=== PATIENT | female | born 1955 | race Caucasian/White ===

== ENCOUNTER 2017-02-22 17:29 | Emergency (ER) | payer MEDICAID ==
[2017-02-22] MEDS ORDERED: Labetalol 20 MG/4 ML Syringe IVPUSH ONE ×2 (18:31→19:26)
[2017-02-22] MEDS ORDERED: Ondansetron 4 MG/2 ML SDV IVPUSH ONE (18:42)
[2017-02-22] MEDS ORDERED: Sodium Chloride 0.9% 1,000 ML IV SCH (18:45)
--- NOTE | 2017-02-22 18:48 | EDM.PDOC ---
ED HPI GENERAL MEDICAL PROBLEM - General Chief Complaint: Cardiovascular Problem Stated Complaint: HIGH BP/NOT FEELING WELL Time Seen by Provider: 02/22/17 18:43 Source of Information: Reports: Patient, Family History Limitations: Reports: No Limitations - History of Present Illness INITIAL COMMENTS - FREE TEXT/NARRATIVE: [facility]. She has had diarrhea alot of the day. She is feeling nauseated. She found that her bp is very high. She is not one who has had high bp for a long time. Onset: Gradual, Other ( She was started on lisinopril on Saturday. ) Duration: Day(s): Location: Reports: Other (pt has had diarrhea all day. ) Worsens with: Reports: None Associated Symptoms: Reports: Headaches, Nausea/Vomiting, Other (pt also has had diarrhea. ) - Related Data Allergies Allergy/AdvReac Type Severity Reaction Status Date / Time No Known Allergies Allergy Verified 02/22/17 18:09 Home Meds: Home Meds Ibuprofen 02/22/17 [History] Lisinopril 20 mg PO DAILY 02/22/17 [History] Lovastatin 02/22/17 [History] Sertraline [Zoloft] 50 mg PO DAILY 02/22/17 [History] Past Medical History Cardiovascular History: Reports: Hypertension, Other (See Below) Other Cardiovascular History: cardiomegaly [employer] History: Reports: Musculoskeletal History: Reports: Fracture - Infectious Disease History Infectious Disease History: Reports: Chicken Pox, Measles, Mumps - Past Surgical History HEENT Surgical History: Reports: Tonsillectomy Female Surgical History: Reports: Section Social & Family History - Tobacco Use Smoking Status *Q: Former Smoker Years of Tobacco use: 10 Used Tobacco, but Quit: Yes Month Tobacco Last Used: october - Caffeine Use Caffeine Use: Reports: Coffee - Recreational Drug Use Recreational Drug Use: Yes Recreational Drug Type: Reports: Marijuana/Hashish ED ROS GENERAL - Review of Systems Review Of Systems: See Below Constitutional: Reports: No Symptoms HEENT: Reports: No Symptoms Respiratory: Reports: No Symptoms Cardiovascular: Reports: No Symptoms Endocrine: Reports: No Symptoms GI/Abdominal: Reports: Diarrhea, Other (pt is not having pain. ) : Reports: No Symptoms Musculoskeletal: Reports: No Symptoms Skin: Reports: No Symptoms ED EXAM, GENERAL - Physical Exam Exam: See Below Free Text/Narrative:: pt arrived with her bp very elevated. She was started on lisinopril on Saturday. She did not feel well this week end and was mildly nauseated. Exam Limited By: No Limitations General Appearance: Alert, Anxious, Mild Distress Ears: Normal TMs Nose: Normal Inspection Throat/Mouth: Normal Inspection Head: Atraumatic Neck: Normal Inspection Respiratory/Chest: No Respiratory Distress Cardiovascular: Regular Rate, Rhythm GI/Abdominal: Soft, Non-Tender (Female) Exam: Deferred Rectal (Female) Exam: Deferred Back Exam: Normal Inspection Extremities: Normal Inspection Neurological: Alert, Oriented, Normal Cognition Psychiatric: Normal Affect Course - Vital Signs Last Recorded V/S: Last Vital Signs Temp 36.4 C 02/22/17 18:12 Pulse 69 02/22/17 21:37 Resp 16 02/22/17 19:07 BP 189/84 H 02/22/17 21:37 Pulse Ox 94 L 02/22/17 21:37 - Orders/Labs/Meds Orders: Active Orders 24 hr Category Date Time Status Abdomen Pelvis wo Cont [CT] Stat Exams 02/22/17 19:12 Taken Sodium Chloride 0.9% [Normal Saline] 1,000 ml Med 02/22/17 18:45 Active IV ASDIRECTED Medication Orders Sodium Chloride (Normal Saline) 1,000 mls @ 999 mls/hr IV ASDIRECTED JEMIMA Last Admin: 02/22/17 18:55 Dose: 999 mls/hr Labs: Laboratory Tests 02/22/17 02/22/17 02/22/17 Range/Units 18:22 18:22 18:46 WBC 7.6 (4.5-11.0) K/uL RBC 4.75 (3.30-5.50) M/uL Hgb 14.1 (12.0-15.0) g/dL Hct 42.4 (36.0-48.0) % MCV 89 (80-98) fL MCH 30 (27-31) pg MCHC 33 (32-36) % Plt Count 234 (150-400) K/uL Neut % (Auto) 56 (36-66) % Lymph % (Auto) 27 (24-44) % [place] % (Auto) 12 H (2-6) % Eos % (Auto) 3 (2-4) % Baso % (Auto) 2 H (0-1) % Sodium 138 L (140-148) mmol/L Potassium 3.6 (3.6-5.2) mmol/L Chloride 102 (100-108) mmol/L Carbon Dioxide 27 (21-32) mmol/L Anion Gap 12.6 (5.0-14.0) mmol/L BUN 16 (7-18) mg/dL Creatinine 1.3 H (0.6-1.0) mg/dL Est Cr Clr Drug Dosing 38.54 mL/min Estimated GFR (MDRD) 42 L (>60) Glucose 98 (74-106) mg/dL Calcium 8.6 (8.5-10.1) mg/dL Total Bilirubin 0.5 (0.2-1.0) mg/dL AST 543 H (15-37) U/L ALT 543 H (12-78) U/L Alkaline Phosphatase 149 H (46-116) U/L C-Reactive Protein (0.0-0.3) mg/dL Total Protein 7.2 (6.4-8.2) g/dL Albumin 3.4 (3.4-5.0) g/dL Globulin 3.8 H (2.3-3.5) g/dL Albumin/Globulin Ratio 0.9 L (1.2-2.2) TSH, Ultra Sensitive 2.090 (0.358-3.740) uIU/mL Urine Color Urine Appearance Urine pH (4.5-8.0) Ur Specific [place] (1.008-1.030) Urine Protein (NEGATIVE) mg/dL Urine Glucose (UA) (NEGATIVE) mg/dL Urine Ketones (NEGATIVE) mg/dL Urine Occult Blood (NEGATIVE) Urine Nitrite (NEGATIVE) Urine Bilirubin (NEGATIVE) Urine Urobilinogen (NORMAL) mg/dL Ur Leukocyte Esterase (NEGATIVE) Urine RBC (0-5) Urine WBC (0-5) Ur Epithelial Cells Amorphous Sediment Urine Bacteria Urine Mucus 02/22/17 02/22/17 Range/Units 19:00 19:30 WBC (4.5-11.0) K/uL RBC (3.30-5.50) M/uL Hgb (12.0-15.0) g/dL Hct (36.0-48.0) % MCV (80-98) fL MCH (27-31) pg MCHC (32-36) % Plt Count (150-400) K/uL Neut % (Auto) (36-66) % Lymph % (Auto) (24-44) % [place] % (Auto) (2-6) % Eos % (Auto) (2-4) % Baso % (Auto) (0-1) % Sodium (140-148) mmol/L Potassium (3.6-5.2) mmol/L Chloride (100-108) mmol/L Carbon Dioxide (21-32) mmol/L Anion Gap (5.0-14.0) mmol/L BUN (7-18) mg/dL Creatinine (0.6-1.0) mg/dL Est Cr Clr Drug Dosing mL/min Estimated GFR (MDRD) (>60) Glucose (74-106) mg/dL Calcium (8.5-10.1) mg/dL Total Bilirubin (0.2-1.0) mg/dL AST (15-37) U/L ALT (12-78) U/L Alkaline Phosphatase (46-116) U/L C-Reactive Protein 0.65 H (0.0-0.3) mg/dL Total Protein (6.4-8.2) g/dL Albumin (3.4-5.0) g/dL Globulin (2.3-3.5) g/dL Albumin/Globulin Ratio (1.2-2.2) TSH, Ultra Sensitive (0.358-3.740) uIU/mL Urine Color Yellow Urine Appearance Clear Urine pH 6.0 (4.5-8.0) Ur Specific [place] 1.005 L (1.008-1.030) Urine Protein Trace (NEGATIVE) mg/dL Urine Glucose (UA) Normal (NEGATIVE) mg/dL Urine Ketones Negative (NEGATIVE) mg/dL Urine Occult Blood Negative (NEGATIVE) Urine Nitrite Negative (NEGATIVE) Urine Bilirubin Negative (NEGATIVE) Urine Urobilinogen Normal (NORMAL) mg/dL Ur Leukocyte Esterase Negative (NEGATIVE) Urine RBC 0-5 (0-5) Urine WBC 0-5 (0-5) Ur Epithelial Cells Few Amorphous Sediment Few Urine Bacteria Not seen Urine Mucus Few Meds: Medications Generic Name Dose Route Start Last Admin Trade Name Freq PRN Reason Stop Dose Admin Sodium Chloride 1,000 mls @ 999 mls/hr 02/22/17 18:45 02/22/17 18:55 Normal Saline IV 999 mls/hr ASDIRECTED JEMIMA Administration Discontinued Medications Generic Name Dose Route Start Last Admin Trade Name Robert CARO Reason Stop Dose Admin Labetalol HCl 20 mg 02/22/17 18:31 02/22/17 19:01 Normodyne IVPUSH 02/22/17 18:32 20 mg NOW ONE Administration Protocol Labetalol HCl 20 mg 02/22/17 19:26 02/22/17 19:59 Normodyne IVPUSH 02/22/17 19:27 20 mg NOW ONE Administration Protocol Lisinopril 5 mg 02/22/17 19:11 02/22/17 19:35 Prinivil PO 02/22/17 19:12 5 mg ONETIME ONE Administration Lisinopril 5 mg 02/22/17 20:34 02/22/17 21:01 Prinivil PO 02/22/17 20:35 5 mg ONETIME ONE Administration Lorazepam 0.5 mg 02/22/17 20:26 02/22/17 21:01 Ativan PO 02/22/17 20:27 0.5 mg ONETIME ONE Administration Ondansetron HCl 4 mg 02/22/17 18:42 02/22/17 18:59 Zofran IVPUSH 02/22/17 18:43 4 mg ONETIME ONE Administration - Re-Assessments/Exams Free Text/Narrative Re-Assessment/Exam: 02/22/17 20:32 pt was given 20mg of labetiol and this was repeated . Her bp did come down some. Her labs showed a creatnine of 1.3. Her liver enzymes are elevated. The pt is on humeria and she is on a statin, A cat scan of the abdoman was obtained which showed a normal liver and GB. Her left kidney is atrophied and this needs to be investigated further. 02/22/17 20:35 pt was given lisinopril 10mg and ativan .5. Odell observe to see where her bp goes. Departure - Departure Time of Disposition: 21:40 Disposition: Home, Self-Care 01 Condition: Fair Clinical Impression: Hypertension, Atrophy of left kidney, Elevated liver enzymes Forms: ED Department Discharge Care Plan Goals: see regular Dr the first part of the week. hold lovastatin, The elevated liver enzymes need further investigation. Her bp remains high will increase the lisinopril To 20mg in am and 10 mg in the pm. cat scan showed atrophy of the left kidney-- the vasclature needs further investigation. - My Orders Last 24 Hours: My Active Orders 02/22/17 18:45 Sodium Chloride 0.9% [Normal Saline] 1,000 ml IV ASDIRECTED 02/22/17 19:12 Abdomen Pelvis wo Cont [CT] Stat - Assessment/Plan Last 24 Hours: My Active Orders 02/22/17 18:45 Sodium Chloride 0.9% [Normal Saline] 1,000 ml IV ASDIRECTED 02/22/17 19:12 Abdomen Pelvis wo Cont [CT] Stat
[2017-02-22] MEDS ORDERED: Lisinopril 5 MG Tab PO ONE ×2 (19:11→20:34)
[2017-02-22] MEDS ORDERED: LORazepam 0.5 MG Tab PO ONE (20:26)
[2017-02-22 21:37] VITALS: BP 189/84
== END 2017-02-22 21:53 | disposition home or self-care (01) ==
LOC: JP.ED 17:29
DX: I12.9 Hypertensive chronic kidney disease with stage 1 through stage 4 chronic kidney disease, or unspecified chronic kidney disease (principal); N18.9 Chronic kidney disease, unspecified; R74.8 Abnormal levels of other serum enzymes; Z98.890 Other specified postprocedural states; Z87.891 Personal history of nicotine dependence; Z79.899 Other long term (current) drug therapy
CPT/HCPCS: 36415; 74176; 80053; 81001; 84443; 85025; 86140; 96361; 96374; 96375; 99284; A9270; J2405; J7040